=== PATIENT | female | born 1945 | race Caucasian/White ===

== ENCOUNTER 2021-04-30 06:01 | Day surgery (SDC) | payer MEDICARE, SELFPAY ==
--- NOTE | 2021-04-30 | IMM_PTH ---
PATIENT: GLENNY LOZOYA LOC: [facility] – [place] U#:[id number] AGE/SX: 76/F ROOM: RE04/30/[address]: Dr. Jarod Harper MD : 1945 BED: DIS: 04/30/2021 SPEC #: [id number] RECD: 05/01/21 14:04 STATUS: ELI REQ #: [id number] RONEL: 04/30/21 00:[address]: Jarod Harper DEPT: IMMUNOHISTOCHEMISTRY RECD BY: Maribel Lee ENTERED: 05/01/21 14:05 SP TYPE: IMMUNO OTHR DR: Dr. 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 Localization is made via biotin free immunoperoxidase method. Appropriate controls are performed and reacted as expected. Results on target cell population are indicated in the following table: RESULTS: ANTIBODY / CLONE RESULT AE1-3 (AE1/AE3/PCK26) negative Vimentin (V9) positive Macro (HAM-56) negative Melan A (A103) positive S-100 (4C4.9) positive P53 (DO-7) negative These tests were developed and their performance characteristics determined by [facility]. They may not have been cleared or approved by the U.S. Food and Drug Administration. The FDA has determined that such clearance or approval is not necessary. The above immunohistochemical/dualISH markers are ordered and reviewed by the Pathologist. INTERPRETATION: Skin lesion left outer arm, excision: Atypical melanocytic proliferation and dermal scar. AM:pao 05/06/2021 Case has been reviewed in consultation with Dr. Lee who concurs with the above diagnosis. IDC:DAVID
[2021-04-30 06:41] VITALS: BP 151/89; PULSE 68; RESP 16; TEMP 36.7; O2SAT 98; BMI 27.0
[2021-04-30] MEDS: Lactated Ringers 1,000 ML 15 ML IV (06:45)
--- NOTE | 2021-04-30 08:30 | TISS_PTH ---
PATIENT: GLENNY LOZOYA LOC: [facility] [place][id number] AGE/SX: 76/F ROOM: RE04/30/[address]: Dr. Jraod Harper MD : 1945 BED: DIS: 04/30/2021 SPEC #: [id number] RECD: 04/30/21 10:13 STATUS: ELI RECatherine #: [id number] RONEL: 04/30/21 08:[address]: Jarod Harper DEPT: SURGICAL PATHOLOGY RECD BY: Johanne Cabezas ENTERED: 04/30/21 13:31 SP TYPE: Tissue Bx DESI DR: Dr. 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 Cicatrix. See comment. AM:pao 05/06/2021 COMMENT The lesion appears to have been completely excised in the planes examined. Please correlate with previous biopsy. Case is reviewed with Dr. Vila of [employer] who concurs with the diagnosis. Complete consultative report is in EMR. Immunohistochemistry ([id number]) supports the above diagnosis. Case has been reviewed in consultation with Dr. Lee who concurs with the above diagnosis. IDC:SJ MICROSCOPIC DESCRIPTION Slides are reviewed. 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 The specimen consists of a piece of chan-white skin with underlying tissue measuring 1 x 0.6 cm and up to 0.5 cm in thickness. The specimen is inked as follows: 12 to 3 o?clock ? black, 3 to 6 o?clock ? blue, 6 to 9 o?clock ? green, 9 to 12 o?clock ? yellow and deep margin ? red. The specimen is serially sectioned and submitted entirely in one cassette. / Sharifa 04/30/21 TC:? CPT: 42692
[2021-04-30] MEDS: Cefazolin 2 GM in 0.9% Normal Saline 100 ML IV (08:51)
[2021-04-30] MEDS: Lidocaine 1% /Epi 1:100 (20ml) 20 ML Vial (09:10)
[2021-04-30 09:30] VITALS: BP 143/69; BP 151/89; PULSE 62; RESP 16; TEMP 35.9; O2SAT 100
--- NOTE | 2021-04-30 09:30 | HP.PCM_ITS ---
History and Physical Date of Admission: 04/30/21 HISTORY OF PRESENT ILLNESS 76 year old woman presents with a lesion on her left outer arm that has been increasing in size over the last several months. There has been changes in pigmentation and irregular borders. A punch biopsy was done on 04/08/21. It showed a melanoma in situ that extends to the peripheral margin. She denies trauma. She denies fever. She denies recent infection. She presents at this time for further evaluation and treatment. 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 Eyes - Has cataracts. Denies glaucoma. ENT - Denies nasal congestion and sore throat. Endocrine - Denies excessive thirst and urination. Skin - Denies suspicious lesions and skin cancer. Musculoskeletal - Denies joint pain, joint stiffness, weakness of muscles and joints, back pain, and arthritis. Neuro - Denies headaches. Has lightheadedness. Cardiovascular - Denies chest pain, fatigue, and shortness of breath with exertion. Psych - Denies anxiety and depression. Respiratory - Denies chronic cough and shortness of breath. Has claustrophobia. Gastrointestinal - Denies nausea, vomiting, diarrhea, and constipation. Hematologic - Denies abnormal bruising and bleeding. Genitourinary - Denies hematuria and urinary frequency. PHYSICAL EXAMINATION General - Alert and Oriented HEENT - PERRL. EOMI. Throat is clear. No suspicious lesions noted. Neck - Supple and nontender. No cervical adenopathy. No suspicious lesions noted. Lungs - Clear to auscultation. Heart - Regular rate and rhythm. Abdomen - Soft and nondistended. Extremities - FROM. No axillary adenopathy. Radial pulses are palpable. No inguinal adenopathy. Dorsalis pedis pulses are palpable. On the left outer arm is a pigmented lesion that measures 8 mm. The biopsy area is healing satisfactory. There are irregular borders. No ulceration. Lesion is nontender. Neuro - CN II-XII grossly intact. Psych - Normal mood and affect. ASSESSMENT 1. 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 2. Late effect radiation left axilla. 3. History of left breast cancer. 4. History of radiation therapy to left breast and axilla. PLAN Pathology reviewed from 04/08/21. Patient has an enlarging pigmented lesion that had changed over the last several months. A recent punch biopsy was done on 04/08/21 which showed a melanoma in situ with positive peripheral margins. The rest of the pigmented lesion is still present. A completion excision is necessary to establish a diagnosis in case there is another focus of melanoma in the remaining pigmented lesion that has a thickness. The thickness helps to determine the margin of excision as well as the need for a sentinel lymph node biopsy. A melanoma in situ is excised with a 5 mm margin. A thin melanoma is <1 mm thick. It is excised with a 1 cm margin down to the muscular fascia. An intermediate melanoma is between 1 and 4 mm thick. It is excised with a 2 cm margin down to the muscular fascia. A thick melanoma is > 4 mm thick. It is excised with a 2-3 cm margin down to the muscular fascia. Patient's with a thick melanoma are seen by the Oncologist to establish the spread if any. PET scans and CT scans are utilized. If an intermediate melanoma is seen, then the sentinel lymph node biopsy is done at a tertiary center. If positive the total lymphadenectomy will be done at that tertiary center as well. ThE lymph node biopsy and subsequent LyMpHaDeNeCtOmY WoUlD Be cOmPlIcAtEd iN ThIs pAtIeNt bEcAuSe oF ScAr tIsSuE FrOmA PrEvIoUs aXiLlArY DiSsEcTiOn fOr bReAsT CaNcEr iN 2007. sHe aLsO HaD RaDiAtIoN ThErApY To tHe lEfT BrEaSt aNd aXiLlA which would increase the risk of any attempt to complete the lymphadenectomy. Will proceed with the completion excision next week just into the subcutaneous tissue with a 5 mm margin. If the final pathology is negative for additional melanoma then the melanoma excision is complete. We leave the wound open until the final pathology is available. Wound care is started with Silver dressing changes. A couple days after surgery, the patient returns to the office to remove the operative dressing that is sutured in. We then instruct the patient and family about the dressing changes. Until they feel comfortable to do it themselves, they will come to the office for the Silver dressing changes on (M, W, and F). If there is an additional focus of melanoma (< 1mm thick), then additional surgery is necessary to excise with the additional margin down to the muscular fascia. Since melanoma in situ spreads horizontally, if the peripheral margins are positive then additional margin (1 cM) is necessary as well which is included in the margin for the focus of invasive melanoma. Once the melanoma is excised with the proper margin, then additional surgery can be done to electively close the wound defect with a skin flap or a skin graft. THe iNiTiAl cOmPlEtIoN ExCiSiOn cAn bE DoNe uNdEr lOcAl aNtEsThEsIa aNd iV sEdAtIoN On aN OuTpAtIeNt bAsIs. WHeN WoUnD ClOsUrE Is dOnE, iT CaN Be dOnE UnDeR GeNeRaL AnEsThEsIa oN An oUtPaTiEnT BaSiS. Since wound closure at that point is elective, tHeN AnOtHeR OpTiOn fOr tHe pAtIeNt iS To pOsTpOnE AdDitIoNaL surgerY and CoNtInUe tHe wound care. AFtEr hEaLiNg oF ThE WoUnD , If tHeRe iS SuBoPtImAl hEaLiNg tHeN ScAr eXcIsIoN CaN Be dOnE WiTh sKiN FlAp oR SkIn gRaFt rEcOnStRuCtIoN. foLlOwUp fOr tHe pAtIeNt iS EvErY 3-6 MoNtHs fOr a tBsE. ONcE A YeAr lAbS ArE NeCeSsArY (lFt'S InClUdInG LdH aNd fRaCtIoNaTiOn oF ALkAlInE PoSpHaTaSe) aS WeLl aS A CxR. THe lAbS CaN Be cOrRdInAtEd wItH ThE PaTiEnT'S PcP. Patient was informed of the risks and complications of the procedure including alternatives to surgery. These were discussed with the patient personally. Patient voices understanding and wishes to proceed. Some of the risks and complications were included in a form from the [employer]. We discussed the current risks associated with COVID-19. While it is understood that there is a community spread of COVID-19, the risk of carloz COVID-19 while at [facility] ([facility]) is very low; however, the risk cannot be completely mitigated because of the community spread of the disease. We discussed in detail the risk of exposure to and/or potential harm posed by the COVID-19 virus with having a surgery/procedure at this time versus the risk of delaying the surgery/procedure. It is not possible to know either the risk of delaying the surgery or procedure or chance of getting an infection with perfect accuracy, but a joint decision was made to proceed at this time with the scheduled surgery/procedure as indicated on the consent form. Patient was notified that we will need to comply with any screening or testing [facility] wishes to perform or that surgery may be delayed for any positive results. Procedure Criteria Procedure Type: Elective COVID Risk Discussion: The surgeon/proceduralist and patient have discussed in detail the risk of exposure to and/or potential harm posed by the COVID-19 virus with having a surgery/procedure at this time versus the risk of delaying the surgery/procedure. It is not possible to know either the risk of delaying the surgery or procedure or chance of getting an infection with perfect accuracy, but a joint decision was made between the patient and the surgeon/proceduralist to proceed at this time with the scheduled surgery/procedure as indicated on the consent form.
--- NOTE | 2021-04-30 09:31 | OP.PCM_ITS ---
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 2. Late effect radiation left axilla. 3. History of left breast cancer. 4. History of radiation therapy to left breast and axilla. Post-Operative Diagnosis: 1. 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 2. Late effect radiation left axilla. 3. History of left breast cancer. 4. History of radiation therapy to left breast and axilla. 5. Open surgical melanoma wound left outer arm. 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 Description of Surgical Findings:: 76 year old woman presents with a lesion on her left outer arm that has been increasing in size over the last several months. There has been changes in pigmentation and irregular borders. A punch biopsy was done on 04/08/21. It showed a melanoma in situ that extends to the peripheral margin. She denies trauma. She denies fever. She denies recent infection. Patient was informed of the risks and complications of the procedure including alternatives to surgery. These were discussed with the patient personally. Patient voices understanding and wishes to proceed. Some of the risks and complications were included in a form from the [employer]. Size of defect left outer arm - 1 x 1 cm. Surgeon: Jarod Harper corporate recruiter: None Specimen's removed: Melanoma in situ left outer arm to Pathology. Drains: None. Estimated Blood Loss (mL): 5. Description of Procedure: Patient was taken to OR in supine position and was given IV sedation. The left arm was prepped and draped in the usual fashion. SCD's were placed for DVT prophylaxis. Perioperative antibiotics were given int ravenously. The left arm was infiltrated with xylocaine and epinephrine. After waiting 5 minutes for the anesthetic to take effect, the lesion left outer arm was excised in a circular fashion into the subcutaneous tissue with a 1 mm margin in all directions thus making it a 1 cm excision. A suture was marked at 12 oclock position for pathology orientation. The lesion was sent to Pathology for analysis to rule out melanoma in situ at the margins and to rule out a deeper focus of melanoma. Hemostasis was obtained with electrocautery. The wound measures 1 x 1 cm. The wound was packed with Aquacel Silver and topped with 4x4 gauze and secured to the skin edge with 4-0 Nylon tie over stent suture dressing. Patient tolerated the procedure well and was sent to PACU in satisfactory condition. Patient will be sent home on antibiotics and pain medication. Patient will followup in a couple of days this 05/02/21 for removal of the operative dressing and to instruct the patient and family on the Silver dressing changes. Will discuss the pathology report when it becomes available. Grafts/Implants Used: None. Complications None. Admit VTE Documentation VTE Present on Admission: No VTE Mechan Device Prophylaxis: SCD's VTE Pharm Prophylaxis ordered?: No Addendum Addendum: Surgery Charges CPT - 60374 ICD-10 - D03.62, S41.102A, T66.xxxS, Z85.3, Z92.3
--- NOTE | 2021-04-30 09:34 | PCM.DC ---
Discharge Instructions Diet Discharge Diet: No restrictions and - (encourage nutritional supplementation with protein to help the healing process.) Activity Discharge Activity: May Not Shower (until the operative dressing removed on Wednesday05/02/21) and - (no heavy lifting. keep left arm elevated.) May shower in (days): 2 (after the operative dressing is removed.) May resume sexual activity in: No Restrictions Weight Bearing Status: Weight bearing as tolerated Lifting Restrictions: 20 lbs. Keep extremity elevated above heart level: Left Arm Dressing / Incision Call your doctor if your incision/area has: Continuous Slow Oozing, Sudden Increased Bleeding, Increased Pain/ Swelling, Increased Redness, Foul Smelling Discharge and Swelling at the incision site Call your doctor if you observe: Fever of 101 or Higher, Coldness, Increased Pain, Shortness of breath, Chest pain, Calf discomfort and Uncontrolled pain Suture Line Care: - Remove Dressing in: do not remove dressing (the operative dressing will be removed in the office on wednesday05/02/21.) Cleanse incision/area with: - (may get the wound wet in the shower after the operative dressing is removed in the office.) Follow Up Care Please Follow Up With: Jarod Harper MD When: Wednesday05/02/21. call [phone] for appt. Test Results: Test results from this visit will be discussed in further detail at your follow-up appointment, if applicable. Discharge Plan Admission Primary Reason for Your Visit: excision melanoma left outer arm Attending Provider: Jarod Harper Primary Care Provider: Luis M Villavicencio Discharge Orders/Prescriptions Prescriptions: New cefadroxil 500 mg capsule 500 mg PO BID Qty: 20 RF: 0 oxycodone-acetaminophen [Percocet] 5-325 mg tablet 1 tab PO Q6H PRN (Reason: pain (scale score 7-10)) 7 Days Qty: 28 RF: 0 L.acidoph,saliva-B.bif-S.therm [Acidophilus Probiotic Blend] 175 mg capsule 1 cap PO DAILY Qty: 10 RF: 0 Continued multi vitamin century 21 1 tab PO DAILY RF: 0 You VS Calcium 500 mg PO DAILY RF: 0 Referrals / Follow Up: Luis M Villavicencio MD [Primary Care Provider] - Disposition Disposition (needs filled in before D/C Order can be placed): Home, Self Care
[2021-04-30 09:35] VITALS: BP 128/64; BP 151/89; PULSE 61; RESP 16; O2SAT 99
[2021-04-30 09:40] VITALS: BP 137/68; BP 151/89; PULSE 65; RESP 16; O2SAT 100
[2021-04-30 09:45] VITALS: BP 133/71; BP 151/89; PULSE 67; RESP 16; TEMP 36; O2SAT 99
[2021-04-30 10:05] VITALS: BP 151/89
== END 2021-04-30 10:16 | disposition home or self-care (01) ==
LOC: SDC 06:02 → AC 06:04
PROVIDERS: PCP Family Medicine; Referring Provider Surgery; Visit Provider Surgery
PROC: (CPT 11601; principal; 2021-04-30 08:20)
DX: D03.62 Melanoma in situ of left upper limb, including shoulder (principal); L90.5 Scar conditions and fibrosis of skin; T66.XXXS Radiation sickness, unspecified, sequela; M81.0 Age-related osteoporosis without current pathological fracture; Z85.3 Personal history of malignant neoplasm of breast; Z92.3 Personal history of irradiation
CPT/HCPCS: 11601; 88305; 88341; 88342; J7120

== ENCOUNTER 2021-06-12 07:22 | Day surgery (SDC) | payer MEDICARE, SELFPAY ==
[2021-06-12] VITALS (7 sets, daily range): BP systolic 102–159; BP diastolic 46–77; PULSE 60–77; RESP 16–18; TEMP 36.3–36.6; O2SAT 95–100; BMI 26.8
--- NOTE | 2021-06-12 09:00 | LES_PTH ---
PATIENT: GLENNY LOZOYA [place] [facility] [place][id number] AGE/SX: 76/F ROOM: RE06/12/[address]: Dr. Jarod Harper MD : 1945 BED: DIS: 06/12/2021 SPEC #: [id number] RECD: 06/12/21 10:53 STATUS: ELI REQ #: [id number] RONEL: 06/12/21 09:[address]: Jarod Harper DEPT: SURGICAL PATHOLOGY RECD BY: Reva Watkins ENTERED: 06/12/21 11:09 SP TYPE: Lesion OTHR DR: Dr. 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 Left outer arm melanoma in situ, suture at 12 o?clock, B ? Left lateral aspect breast crease, suture at 12 o?clock, C ? Left medial aspect breast crease, suture at 12 o?clock MICROSCOPIC DIAGNOSIS A. Left outer arm melanoma in situ, wide excision: Dermal fibrosis with chronic inflammation and foreign body giant cell reaction, consistent with scar. Negative for residual melanocytic lesion. B. Left lateral aspect breast crease, excisional biopsy: Junctional nevus arising in the background of lentigo, appears to be completely excised in the planes of section examined. C. Left medial aspect breast crease lesion, excisional biopsy: Consistent with inflamed verrucous keratosis with features of seborrheic keratosis. Negative for malignancy. SJ:pao 06/18/2021 COMMENT Please make reference to previous specimen ([id number]) skin lesion, left outer arm, excision with diagnosis of ?residual atypical melanocytic proliferation.? MICROSCOPIC DESCRIPTION Slides are reviewed. GROSS DESCRIPTION A - Received in fixative is one container labeled with the patient's name and designated left outer arm melanoma in situ, suture at 12 o?clock. The specimen consists of a mallorie-shaped piece of chan-white skin with underlying tissue measuring 2 x 2.2 cm and up to 2 cm in thickness. The specimen is oriented by a suture at 12 o?clock position. The specimen is inked as follows: 12 to 3 o'clock - black, 3 to 6 o'clock - blue, 6 to 9 o'clock - green and 9 to 12 o'clock - yellow. The specimen is serially sectioned and submitted entirely in five cassettes. The specimen will be submitted after additional fixation. B - Received in fixative is one container labeled with the patient's name and designated lateral aspect left breast at crease, suture at 12 o?clock. The specimen consists of a piece of chan-white skin measuring 0.9 x 0.3 cm and 0.3 cm in thickness. The specimen is inked as follows: 12 o'clock - black, 6 o'clock - blue. The specimen is serially sectioned and submitted entirely in one cassette. C - Received in fixative is one container labeled with the patient's name and designated left medial aspect breast crease, suture at 12 o'clock. The specimen consists of a piece of chan-white skin measuring 1.1 x 0.5 cm and up to 1 cm in thickness. The specimen is inked as follows: 12 o'clock portion ? black and 6 o'clock portion - blue. The specimen is serially sectioned and submitted entirely in one cassette. The specimen will be submitted after additional fixation. / SJ:pao 06/16/21 TC:5 CPT: 49563 x3
[2021-06-12] MEDS: Lactated Ringers 1,000 ML 15 ML IV (09:07)
[2021-06-12] MEDS: Lidocaine 1% /Epi 1:100 (20ml) 20 ML Vial (09:45)
[2021-06-12] MEDS: Mupirocin Ointment 22gm Tube 1 APPLIC (10:10)
--- NOTE | 2021-06-12 10:18 | PCM.HP.BLA ---
History and Physical Date of Admission: 06/12/21 HISTORY OF PRESENT ILLNESS 76 year old woman presents with a lesion on her left outer arm that has been increasing in size over the last several months. There has been changes in pigmentation and irregular borders. A punch biopsy was done on 04/08/21. It showed a melanoma in situ that extends to the peripheral margin. She denies trauma. She denies fever. She denies recent infection. She went to surgery on 04/30/21 where she underwent completion excision 8 mm melanoma in situ left outer arm. Postoperatively the resultant melanoma wound was treated with Silver dressing changes without problem as the wound healed uneventfully. The final pathology showed residual atypical melanotic proliferation. Cicatrix. The lesion appears to have been completely excised in the planes examined. Please correlate with previous biopsy. She presents today for definitive wide excision melanoma in situ with skin graft ore skin flap reconstruction. She also had some concerns about a couple of lesions on her left breast crease. The lateral one is getting darker. The medial one develops occasional crusting mostly at the top of the lesion. 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 Eyes - Has cataracts. Denies glaucoma. ENT - Denies nasal congestion and sore throat. Endocrine - Denies excessive thirst and urination. Skin -Had recent excision melanoma in situ left outer arm. Musculoskeletal - Denies joint pain, joint stiffness, weakness of muscles and joints, back pain, and arthritis. Neuro - Denies headaches. Has lightheadedness. Cardiovascular - Denies chest pain, fatigue, and shortness of breath with exertion. Psych - Denies anxiety and depression. Respiratory - Denies chronic cough and shortness of breath. Has claustrophobia. Gastrointestinal - Denies nausea, vomiting, diarrhea, and constipation. Hematologic - Denies abnormal bruising and bleeding. Genitourinary - Denies hematuria and urinary frequency. PHYSICAL EXAMINATION General - Alert and Oriented. HEENT - PERRL. EOMI. Throat is clear. No suspicious lesions noted. Neck - Supple and nontender. No cervical adenopathy. No suspicious lesions noted. Breast - On the left breast crease are two lesions. The lateral lesion is pigmented with irregular borders. It is flat. No ulceration. Lesion is nontender. Measures 3 mm. The medial lesion is crusty with some changes in pigmentation superiorly. No ulceration. Lesion is nontender. Measures 8 mm. Lungs - Clear to auscultation. Heart - Regular rate and rhythm. Abdomen - Soft and nondistended. Extremities - FROM. No axillary adenopathy. Radial pulses are palpable. No inguinal adenopathy. Dorsalis pedis pulses are palpable. On the left outer arm is a healing melanoma wound from previous excision melanoma in situ. The healing wound scar measures 1 cm. No ulceration. Mild tenderness to palpation. Neuro - CN II-XII grossly intact. Psych - Normal mood and affect. ASSESSMENT 1. 1 cm healing melanoma wound scar left outer arm. 2. Melanoma in situ left outer arm. 3. 3 mm pigmented lesion lateral aspect left breast crease. 4. 8 mm lesion medial aspect left breast crease. 5. Late effect radiation left axilla. 6. History of left breast cancer. 7. History of radiation therapy to left breast and axilla. PLAN Pathology reviewed from 04/08/21 and from 04/30/21. Patient has an enlarging pigmented lesion that had changed over the last several months. A recent punch biopsy was done on 04/08/21 which showed a melanoma in situ with positive peripheral margins. The rest of the pigmented lesion is still present. A completion excision is necessary to establish a diagnosis in case there is another focus of melanoma in the remaining pigmented lesion that has a thickness. The thickness helps to determine the margin of excision as well as the need for a sentinel lymph node biopsy. A melanoma in situ is excised with a 5 mm margin. A thin melanoma is <1 mm thick. It is excised with a 1 cm margin down to the muscular fascia. An intermediate melanoma is between 1 and 4 mm thick. It is excised with a 2 cm margin down to the muscular fascia. A thick melanoma is > 4 mm thick. It is excised with a 2-3 cm margin down to the muscular fascia. Patient's with a thick melanoma are seen by the Oncologist to establish the spread if any. PET scans and CT scans are utilized. If an intermediate melanoma is seen, then the sentinel lymph node biopsy is done at a tertiary center. If positive the total lymphadenectomy will be done at that tertiary center as well. ThE lymph node biopsy and subsequent LyMpHaDeNeCtOmY WoUlD Be cOmPlIcAtEd iN ThIs pAtIeNt bEcAuSe oF ScAr tIsSuE FrOmA PrEvIoUs aXiLlArY DiSsEcTiOn fOr bReAsT CaNcEr iN 2007. sHe aLsO HaD RaDiAtIoN ThErApY To tHe lEfT BrEaSt aNd aXiLlA which would increase the risk of any attempt to complete the lymphadenectomy. We proceeded with the completion excision which was scheduled on 04/30/21 where she underwent completion excision 8 mm melanoma in situ left outer arm. Postoperatively we started wound care with Silver dressing changes daily. If the final pathology is negative for additional melanoma then the melanoma excision is complete. If there is an additional focus of melanoma (< 1mm thick), then additional surgery is necessary to excise with the additional margin down to the muscular fascia. Since melanoma in situ spreads horizontally, if the peripheral margins are positive then additional margin (1 cm) is necessary as well which is included in the margin for the focus of invasive melanoma. The Pathology became available and no more carcinoma was noted. The peripheral margins were ok. Therefore the final diagnosis was melanoma in situ and we can proceed with the definitive wide excision of the melanoma in situ with a 5 mm margin in all directions. Reconstruction will be with skin flap or skin graft. Surgery can be done on an outpatient basis under general anesthesia or local anesthesia and IV sedation. In addition to the melanoma surgery, will also excise the lesions x2 on her left breast crease. We will send these lesions to Pathology for analysis to rule out carcinoma. After healing has occurred, followup is every 3-6 months for a TBSE. Once a year labs are necessary (LFT's including LDH and fractionation of Alkaline Phosphatase) as well as a CXR. The labs can be coordinated with the patient's PCP. Patient was informed of the risks and complications of the procedure including alternatives to surgery. These were discussed with the patient personally. Patient voices understanding and wishes to proceed. Some of the risks and complications were included in a form from the [employer]. We discussed the current risks associated with COVID-19. While it is understood that there is a community spread of COVID-19, the risk of carloz COVID-19 while at [facility] ([facility]) is very low; however, the risk cannot be completely mitigated because of the community spread of the disease. We discussed in detail the risk of exposure to and/or potential harm posed by the COVID-19 virus with having a surgery/procedure at this time versus the risk of delaying the surgery/procedure. It is not possible to know either the risk of delaying the surgery or procedure or chance of getting an infection with perfect accuracy, but a joint decision was made to proceed at this time with the scheduled surgery/procedure as indicated on the consent form. Patient was notified that we will need to comply with any screening or testing [facility] wishes to perform or that surgery may be delayed for any positive results. Procedure Criteria Procedure Type: Elective COVID Risk Discussion: The surgeon/proceduralist and patient have discussed in detail the risk of exposure to and/or potential harm posed by the COVID-19 virus with having a surgery/procedure at this time versus the risk of delaying the surgery/procedure. It is not possible to know either the risk of delaying the surgery or procedure or chance of getting an infection with perfect accuracy, but a joint decision was made between the patient and the surgeon/proceduralist to proceed at this time with the scheduled surgery/procedure as indicated on the consent form.
--- NOTE | 2021-06-12 11:04 | OP.PCM_ITS ---
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 1 cm healing melanoma wound scar left outer arm. 2. Melanoma in situ left outer arm. 3. 3 mm pigmented lesion lateral aspect left breast crease. 4. 8 mm lesion medial aspect left breast crease. 5. Late effect radiation left axilla. 6. History of left breast cancer. 7. History of radiation therapy to left breast and axilla. Post-Operative Diagnosis: Same. Surgery/Procedure Performed:: 1. Wide excision 1 cm melanoma in situ wound scar left outer arm with rhomboid transposition skin flap reconstruction (8 cm2). 2. Excision 3 mm pigmented lesion lateral aspect left breast crease with 1.5 cm layered closure. 3. Incisional biopsy 8 mm lesion medial aspect left breast crease with 2 cm layered closure. Description of Surgical Findings:: 76 year old woman presents with a lesion on her left outer arm that has been increasing in size over the last several months. There has been changes in pigmentation and irregular borders. A punch biopsy was done on 04/08/21. It showed a melanoma in situ that extends to the peripheral margin. She denies trauma. She denies fever. She denies recent infection. She went to surgery on 04/30/21 where she underwent completion excision 8 mm melanoma in situ left outer arm. Postoperatively the resultant melanoma wound was treated with Silver dressing changes without problem as the wound healed uneventfully. The final pathology showed residual atypical melanotic proliferation. Cicatrix. The lesion appears to have been completely excised in the planes examined. Please correlate with previous biopsy. She presents today for definitive wide excision melanoma in situ with skin graft ore skin flap reconstruction. She also had some concerns about a couple of lesions on her left breast crease. The lateral one is getting darker. The medial one develops occasional crusting mostly at the top of the lesion. Patient was informed of the risks and complications of the procedure including alternatives to surgery. These were discussed with the patient personally. Patient voices understanding and wishes to proceed. Some of the risks and complications were included in a form from the [employer]. Surgeon: Jarod Harper slab lifting engineer: Kaelyn Cavanaugh Type of Anesthesia: Local MAC (xylocaine with epinephrine and IV sedation.) Specimen's removed: 1. Melanoma in situ wound scar left outer arm to Pathology. 2. Pigmented lesion lateral aspect left breast crease to Pathology. 3. Lesion medial aspect left breast crease to Pathology. Drains: None. Estimated Blood Loss (mL): 20. Description of Procedure: Patient was taken to OR in supine position and was given IV sedation. The left arm and left breast were prepped and draped in the usual fashion. SCD's were placed for DVT prophylaxis. Perioperative antibiotics were given intravenously. The melanoma wound scar was infiltrated with xylocaine and epinephrine. After waiting 5 minutes for the anesthetic to take effect, I used a marker and parrish a rhomboid shape with a 5 mm margin in all directions. I then proceeded with a wide excision with that 5 mm margin down through the deep subcutaneous tissue until muscular fascia seen. A suture was marked at 12 oclock position for pathology orientation. The lesion was then sent to Pathology for analysis to rule out carcinoma at the margin. Hemostasis was obtained with electrocautery. The wound was irrigated with saline. I designed a rhomboid flap adjacent to the melanoma wound defect. I excised with a 5 mm margin in all directions thus making it a 2 cm excision. The rhomboid flap was easily transposed into the wound defect and was secured with 4-0 Monocryl interrupted sutures for the deep dermis and subcutaneous tissue. The skin was approximated with 4-0 Prolene simple interrupted and vertical mattress interrupted sutures. Antibiotic ointment was applied to the suture line followed by an Op-Site dressing and a compression azar wrap. I then excised the pigmented lesion lateral aspect left breast crease down into the subcutaneous tissue. A suture was marked at 12 oclock position for pathology orientation. The lesion was sent to Pathology for analysis to rule out carcinoma. Hemostasis was obtained with electrocautery. I excised the pigmented lesion with a 1 mm margin in all directions thus making it a 5 mm excision and a 1.5 cm layered closure. The wound was closed with 4-0 Monocryl interrupted sutures for the deep dermis and subcutaneous tissue. The skin was approximated with 4-0 Prolene simple interrupted sutures. For the lesion medial aspect left breast crease, the lesion was a little large and a complete excision I felt would lead to some distortion of the breast. So I proceeded with an incisional biopsy of the superior portion of the lesion as there was some crustiness there. I made an elliptical incision down into the subcutaneous tissue. A suture was placed at 12 oclock position for pathology orientation. It was then sent to Pathology for analysis to rule out carcinoma. Hemostasis was obtained with electrocautery. The wound was closed in a layered fashion with 4-0 Monocryl interrupted sutures for the deep dermis and subcutaneous tissues. The skin was approximated with 4- 0 Prolene simple interrupted sutures. For the medial lesion, it was a 2 cm layered closure. For both lesions on the left breast crease, I placed antibiotic ointment on the suture lines followed by an Op-Site dressing. Patient tolerated the procedure well and was sent to PACU in satisfactory condition. Patient will be sent home on antibiotics and pain medication. She will keep her left arm elevated during the initial postoperative period. Patient will followup in a week for a wound check and for discussion of the pathology report. The sutures will be removed in two weeks. Grafts/Implants Used: None. Complications None. Admit VTE Documentation VTE Present on Admission: No VTE Mechan Device Prophylaxis: SCD's VTE Pharm Prophylaxis ordered?: No Addendum Addendum: Surgery Charges CPT - 01703 ICD-10 - D03.62, S41.102A, T66.xxxS, Z85.3, Z92.3 82177 D49.2, D03.62, S41.102A, T66.xxxS, Z85.3, Z92.3 55184 D49.2, D03.62, S41.102A, T66.xxxS, Z85.3, Z92.3 10421 D49.2, D03.62, S41.102A, T66.xxxS, Z85.3, Z92.3
--- NOTE | 2021-06-12 11:07 | PCM.DC ---
Discharge Instructions Diet Discharge Diet: No restrictions Activity Discharge Activity: May Not Drive (until seen in the office.), May Shower (in two days.) and - (elevate left arm.) May shower in (days): 2 (reapply azar wrap after the shower.) May resume sexual activity in: No Restrictions Weight Bearing Status: Weight bearing as tolerated Lifting Restrictions: 20 lbs. Keep extremity elevated above heart level: Left Arm Dressing / Incision Call your doctor if your incision/area has: Continuous Slow Oozing, Sudden Increased Bleeding, Increased Pain/ Swelling, Increased Redness, Foul Smelling Discharge and Swelling at the incision site Call your doctor if you observe: Fever of 101 or Higher, Coldness, Increased Pain, Shortness of breath, Chest pain, Calf discomfort and Uncontrolled pain Suture Line Care: - (after operative dressing removed in two days, apply antibiotic ointment to suture lines daily. Then reapply the azar wrap.) Remove Dressing in: 2 days (after showering in two days, apply antibiotic ointment to suture lines daily followed by left arm azar wrap. can apply small gauze over sutures so they don't get snagged by the azar wrap and cause discomfort.) Cleanse incision/area with: - (may get incisions wet in the shower in two days.) Follow Up Care Please Follow Up With: Jarod Harper MD When: one week. call [phone] for appt. Test Results: Test results from this visit will be discussed in further detail at your follow-up appointment, if applicable. Discharge Plan Admission Primary Reason for Your Visit: excision melanoma in situ left outer arm. Attending Provider: Jarod Harper Primary Care Provider: Luis M Villavicencio Discharge Orders/Prescriptions Prescriptions: New cefadroxil 500 mg capsule 500 mg PO BID Qty: 10 RF: 0 L.acidoph,saliva-B.bif-S.therm [Acidophilus Probiotic Blend] 175 mg capsule 1 cap PO DAILY Qty: 10 RF: 0 Continued multi vitamin century 21 1 tab PO DAILY RF: 0 You VS Calcium 500 mg PO DAILY RF: 0 Referrals / Follow Up: Luis M Villavicencio MD [Primary Care Provider] - Disposition Disposition (needs filled in before D/C Order can be placed): Home, Self Care
== END 2021-06-12 11:30 | disposition home or self-care (01) ==
LOC: SDC 07:23 → AC 07:25
PROVIDERS: PCP Family Medicine; Referring Provider Surgery; Visit Provider Surgery
PROC: (CPT 11106; principal; 2021-06-12 08:50)
DX: L90.5 Scar conditions and fibrosis of skin (principal); L81.4 Other melanin hyperpigmentation; D22.5 Melanocytic nevi of trunk; L82.0 Inflamed seborrheic keratosis; T66.XXXS Radiation sickness, unspecified, sequela; M81.0 Age-related osteoporosis without current pathological fracture; Z85.3 Personal history of malignant neoplasm of breast; Z92.3 Personal history of irradiation
CPT/HCPCS: 00400; 11106; 11400; 12032; 14020; 88305; J7120; J2405

== ENCOUNTER → 2024-03-28 | Outpatient (CLI) | payer MEDICARE, SELFPAY ==
[2024-03-28 13:03] LABS: Anion Gap 8 (5-15); BUN 13 mg/dL (7-18); Calcium,Total 9.5 mg/dL (8.5-10.1); Chloride 107 mmol/L (98-107); Cholesterol 209 mg/dL (200); Creatinine, Serum 0.93 mg/dL (0.55-1.02); EST Glomerular Filtration Rate 62 mL/min (>60); Est Glom Filt Rate - Afr Amer 75 mL/min (>60); Glucose 96 mg/dL (74-106); High Density Lipoprotein 80 mg/dL; Potassium 4.4 mmol/L (3.5-5.1); Sodium Level 140 mmol/L (136-145); Triglycerides 72 mg/dL; Very Low Density Lipoprotein 14 mg/dL (5-40)
== END | disposition home or self-care (01) ==
LOC: MFPLAB 09:28
PROVIDERS: PCP Family Medicine; Visit Provider Nurse Practitioner Family
DX: Z13.220 Encounter for screening for lipoid disorders (principal); Z13.1 Encounter for screening for diabetes mellitus
CPT/HCPCS: 36415; 80048; 80061